=== PATIENT | male | born 1950 | race Caucasian/White ===

== ENCOUNTER 2022-11-26 09:26 | Emergency (ER) | payer MEDICARE, OTHER ==
[~2022-11-26] VITALS: Ht 175.3 cm; Wt 79.4 kg
[2022-11-26] MEDS ORDERED: ATORVASTATIN CA10 MG PO (09:44)
[2022-11-26] MEDS ORDERED: LISINOPRIL-HCT1 EACH PO (09:45)
[2022-11-26] MEDS ORDERED: ONDANSETRON ODT8 MG PO (12:30)
[2022-11-26] MEDS ORDERED: FLOMAX0.4 MG PO (12:30)
[2022-11-26] MEDS ORDERED: HYDROCODON-ACE1 EA11 PO (12:30)
== END 2022-11-26 13:06 | disposition home or self-care (01) ==
LOC: ED 09:26
DX: N13.2 Hydronephrosis with renal and ureteral calculous obstruction (principal); I10 Essential (primary) hypertension; Z87.442 Personal history of urinary calculi; E78.00 Pure hypercholesterolemia, unspecified; Z79.899 Other long term (current) drug therapy
CPT/HCPCS: 36415; 74176; 80053; 81001; 85025; 87088; 96374; 96375; 99284-25; J1885; J2405; J7030

== ENCOUNTER 2025-03-16 17:15 | Emergency (ER) | payer MEDICARE, OTHER ==
[~2025-03-16] VITALS: Ht 175.3 cm; Wt 76.8 kg
[~2025-03-16 17:15] MED LIST: ATORVASTATIN CA10 MG PO; FLOMAX0.4 MG PO; HYDROCODON-ACE1 EA11 PO; LISINOPRIL-HCT1 EACH PO; ONDANSETRON ODT8 MG PO
[2025-03-16] MEDS ORDERED: ONDANSETRON 4 MG TAB ODT SL ONE (17:30)
[2025-03-16] MEDS ORDERED: MECLIZINE HCL 25 MG TAB PO ONE (17:30)
[2025-03-16 17:45] LABS: BASOPHILS 0.5 % (0-2); EOSINOPHILS 0.4 % (0-6); HEMATOCRIT 44.7 % (35.0-50.0); HEMOGLOBIN 15.4 g/dL (12.0-18.0); LYMPHOCYTES 12.7 % (24-44); MCH 31.4 (27-36); MCHC 34.4 g/dl (30-36); MCV 91.1 fl (81-99); MONOCYTES 6.2 % (0-12); NEUTROPHILS 80.2 % (39-80); PLATELET COUNT 225 K/uL (140-440); RDW 13.6 (10.5-15.0)
[2025-03-16 18:02] LABS: ALBUMIN 3.7 g/dL (3.4-5.0); ALBUMIN/GLOBULIN RATIO 1.23 (1.1-2.4); BILIRUBIN, TOTAL 1.6 mg/dL (0.2-1.0); BUN/CREATININE RATIO 17.24 (6.0-28.6); CALCIUM 8.6 mg/dL (8.5-10.1); CREATININE, SERUM 1.16 mg/dL (0.70-1.30); PROTEIN, TOTAL 6.7 g/dL (6.4-8.2)
[2025-03-16] MEDS ORDERED: MECLIZINE HCL25 MG PO (19:02)
[2025-03-16 19:15] VITALS: BP 161/95
--- NOTE | 2025-03-17 19:13 | EKG ---
[facility] [address] [facility] [place], [place] [address] Signed Normal sinus rhythm Normal ECG No previous ECGs available Confirmed by William Quiñonez MD ([id number]) on 03/17/2025 7:13:07 PM Electronically Signed By: WILLIAM QUIÑONEZ MD 03/17/251912 PATIENT NAME: MJ COLLIER Electrocardiogram DATE OF : 46 PHYSICIAN: WILLIAM QUIÑONEZ MD REPORT #: [id number] REPORT IS CONFIDENTIAL AND NOT TO BE RELEASED WITHOUT AUTHORIZATION
== END 2025-03-16 19:15 | disposition home or self-care (01) ==
LOC: ED 17:15
PROVIDERS: Emergency Medicine
DX: H81.399 Other peripheral vertigo, unspecified ear (principal); I10 Essential (primary) hypertension; Z79.899 Other long term (current) drug therapy; Z88.8 Allergy status to other drugs, medicaments and biological substances
CPT/HCPCS: 36415; 70450; 71045; 80053; 84484; 85025; 93005; 93010; 99284-25; A9270